=== PATIENT | female | born 2000 | race Asian ===

== ENCOUNTER 2023-10-01 19:07 | Emergency (ER) | payer BC ==
[~2023-10-01] VITALS: Ht 149.9 cm; Wt 43.5 kg
[2023-10-01] MEDS ORDERED: CEPH500 PO (22:53)
[2023-10-01] MEDS ORDERED: Cephalexin Monohydrate 500 MG Cap PO ONE (22:55)
== END 2023-10-01 23:31 | disposition home or self-care (01) ==
LOC: ER 19:07
DX: L03.114 Cellulitis of left upper limb (principal); Z88.0 Allergy status to penicillin
CPT/HCPCS: 99283; A9270